=== PATIENT | male | born 1975 | race Caucasian/White ===

== ENCOUNTER 2017-12-17 23:54 | Emergency (ER) | payer MEDICAID ==
[~2017-12-17] VITALS: Ht 177.8 cm; Wt 69.0 kg
[2017-12-18] MEDS ORDERED: ONDANSETRON HCL 4MG/2ML INJ IV ONE (04:30)
[2017-12-18] MEDS ORDERED: SODIUM CHLORIDE 0.9% 1,000 ML IV ONE (04:30)
[2017-12-18] MEDS ORDERED: ACETAMINOPHEN 325MG TABLET PO ONE (06:00)
[2017-12-18] MEDS ORDERED: LORAZEPAM 2MG/ML CPJ IV ONE (06:00)
[2017-12-18] MEDS ORDERED: KETOROLAC 15MG/ML VIAL IV ONE (06:30)
[2017-12-18] MEDS ORDERED: FAMOTIDINE 20MG/2ML VIAL IV ONE (06:30)
[2017-12-18 07:06] LABS: *AMPHETAMINES SCREEN URINE PRESUMTIVE POSITIVE (NEGATIVE); *BARBITURATES SCREEN URINE NEGATIVE (NEGATIVE); *BENZODIAZEPINES SCREEN URINE NEGATIVE (NEGATIVE); *COCAINE SCREEN URINE NEGATIVE (NEGATIVE); METHADONE URINE SCREEN NEGATIVE (NEGATIVE)
[2017-12-18 07:07] LABS: OPIATES URINE SCREEN NEGATIVE (NEGATIVE); PHENCYCLIDINE URINE SCREEN NEGATIVE (NEGATIVE)
[2017-12-18 07:14] LABS: CANNABINOID URINE SCREEN NEGATIVE (NEGATIVE)
[2017-12-18 07:18] VITALS: BP 160/91
== END 2017-12-18 07:19 | disposition home or self-care (01) ==
LOC: ER 23:54
DX: F15.10 Other stimulant abuse, uncomplicated (principal); F41.9 Anxiety disorder, unspecified; F17.200 Nicotine dependence, unspecified, uncomplicated; F90.9 Attention-deficit hyperactivity disorder, unspecified type; R51 Headache; Z79.899 Other long term (current) drug therapy
CPT/HCPCS: 80305; 96361; 96374; 96375; 99284; J1885; J2060; J2405; J3490; J7030

== ENCOUNTER 2017-12-25 17:38 | Emergency (ER) | payer MEDICAID, MEDICARE ==
[~2017-12-25] VITALS: Ht 165.1 cm; Wt 73.0 kg
[2017-12-25 19:40] VITALS: BP 150/100
[2017-12-25] MEDS ORDERED: SODIUM CHLORIDE 0.9% 1,000 ML IV ONE (19:50)
[2017-12-25 20:08] LABS: CLARITY URINE CLEAR (CLEAR); COLOR URINE YELLOW (YELLOW); KETONES URINE TRACE (NEGATIVE); LEUKOCYTE ESTERASE URINE NEGATIVE (NEGATIVE); NITRITE URINE NEGATIVE (NEGATIVE); OCCULT BLOOD URINE NEGATIVE (NEGATIVE); PROTEIN URINE NEGATIVE (NEGATIVE); SPECIFIC GRAVITY URINE 1.022 (1.005-1.030); UROBILINOGEN URINE 0.2 E.U./dL (0.2-1.0)
[2017-12-25 20:42] LABS: BASOPHILS % 0.4 % (0.0-2.0); EOSINOPHILS % 1.8 % (0.0-5.0); HEMATOCRIT. 45.1 % (42.0-52.0); HEMOGLOBIN. 15.5 g/dL (14.0-18.0); LYMPHOCYTES % 29.8 % (20.0-50.0); MEAN CORPUSCULAR HEMOGLOBIN 30.8 pg (28.0-32.0); MEAN CORPUSCULAR VOLUME 89.7 fL (80.0-94.0); MONOCYTES % 7.8 % (2.0-8.0); NEUTROPHILS % 60.2 % (40.0-76.0); PLATELET 304 x1000/uL (130-400); RED BLOOD CELL COUNT 5.03 mill/uL (4.7-6.1); RED CELL DISTRIBUTION WIDTH 14.3 % (11.6-14.6)
[2017-12-25 20:45] LABS: CHLORIDE 106 mEq/L (98-107)
== END 2017-12-25 22:20 | disposition home or self-care (01) ==
LOC: ER 17:38
DX: E86.0 Dehydration (principal); F15.10 Other stimulant abuse, uncomplicated
CPT/HCPCS: 36415; 80053; 81003; 83690; 85025; 96360; 99284; J7030; Z7610

== ENCOUNTER 2018-01-19 12:08 | Emergency (ER) | payer MEDICARE ==
[~2018-01-19] VITALS: Ht 165.1 cm; Wt 72.7 kg
[2018-01-19] MEDS ORDERED: LORAZEPAM 1MG TABLET PO ONE (14:00)
[2018-01-19 17:11] VITALS: BP 126/86
== END 2018-01-19 17:12 | disposition home or self-care (01) ==
LOC: ER 15:52
DX: F41.9 Anxiety disorder, unspecified (principal); F15.10 Other stimulant abuse, uncomplicated; F10.10 Alcohol abuse, uncomplicated; Y90.9 Presence of alcohol in blood, level not specified
CPT/HCPCS: 99284

== ENCOUNTER 2018-02-23 16:07 | Emergency (ER) | payer MEDICARE ==
[~2018-02-23] VITALS: Ht 165.1 cm; Wt 69.0 kg
[2018-02-23 16:29] VITALS: BP 115/66
== END 2018-02-23 19:34 | disposition home or self-care (01) ==
LOC: ER 19:06
DX: F90.9 Attention-deficit hyperactivity disorder, unspecified type (principal); F12.10 Cannabis abuse, uncomplicated; F40.9 Phobic anxiety disorder, unspecified
CPT/HCPCS: 99281

== ENCOUNTER 2018-03-21 11:57 | Emergency (ER) | payer MEDICAID, MEDICARE ==
[~2018-03-21] VITALS: Ht 165.1 cm; Wt 68.0 kg
[2018-03-21 17:56] LABS: CLARITY URINE CLEAR (CLEAR); COLOR URINE YELLOW (YELLOW); KETONES URINE NEGATIVE (NEGATIVE); LEUKOCYTE ESTERASE URINE NEGATIVE (NEGATIVE); NITRITE URINE NEGATIVE (NEGATIVE); OCCULT BLOOD URINE NEGATIVE (NEGATIVE); PROTEIN URINE NEGATIVE (NEGATIVE); SPECIFIC GRAVITY URINE 1.002 (1.005-1.030); UROBILINOGEN URINE 0.2 E.U./dL (0.2-1.0)
[2018-03-21 18:14] LABS: BASOPHILS % 0.7 % (0.0-2.0); EOSINOPHILS % 2.7 % (0.0-5.0); HEMOGLOBIN. 15.7 g/dL (14.0-18.0); LYMPHOCYTES % 18.3 % (20.0-50.0); MEAN PLATELET VOLUME 7.1 fl (7.4-10.4); MONOCYTES % 10.9 % (2.0-8.0); NEUTROPHILS % 67.4 % (40.0-76.0); PLATELET 219 x1000/uL (130-400); RED BLOOD CELL COUNT 5.05 mill/uL (4.7-6.1); RED CELL DISTRIBUTION WIDTH 13.6 % (11.6-14.6)
[2018-03-21 18:18] LABS: CHLORIDE 103 mEq/L (98-107)
[2018-03-21 18:19] LABS: *AMPHETAMINES SCREEN URINE NEGATIVE (NEGATIVE); *BARBITURATES SCREEN URINE NEGATIVE (NEGATIVE); *BENZODIAZEPINES SCREEN URINE NEGATIVE (NEGATIVE); *COCAINE SCREEN URINE NEGATIVE (NEGATIVE); METHADONE URINE SCREEN NEGATIVE (NEGATIVE); OPIATES URINE SCREEN NEGATIVE (NEGATIVE)
[2018-03-21 18:20] LABS: CANNABINOID URINE SCREEN NEGATIVE (NEGATIVE); PHENCYCLIDINE URINE SCREEN NEGATIVE (NEGATIVE)
[2018-03-21 18:22] LABS: ETHANOL BLOOD 169 mg/dL
[2018-03-22] MEDS ORDERED: ACETAMINOPHEN 500MG TABLET PO ONE (02:30)
[2018-03-22] MEDS ORDERED: ACETAMINOPHEN 325MG TABLET PO ONE (08:45)
[2018-03-22] MEDS ORDERED: IBUPROFEN 600MG TABLET PO ONE (15:00)
[2018-03-22 15:07] VITALS: BP 128/82
== END 2018-03-22 17:37 | disposition home or self-care (01) ==
LOC: ER 12:14
DX: T51.0X1A Toxic effect of ethanol, accidental (unintentional), initial encounter (principal); R53.1 Weakness; R51 Headache; R45.851 Suicidal ideations; F32.9 Major depressive disorder, single episode, unspecified; F15.10 Other stimulant abuse, uncomplicated; F12.10 Cannabis abuse, uncomplicated; F41.9 Anxiety disorder, unspecified; F10.20 Alcohol dependence, uncomplicated; Y90.6 Blood alcohol level of 120-199 mg/100 ml; Y92.89 Other specified places as the place of occurrence of the external cause
CPT/HCPCS: 36415; 80053; 80305; 81003; 85025; 99285; G0482

== ENCOUNTER 2021-01-08 08:12 | Emergency (ER) | payer MEDICAID ==
[~2021-01-08] VITALS: Ht 165.1 cm; Wt 71.0 kg
[2021-01-08] MEDS ORDERED: CHLORDIAZEPOXIDE 10MG CAPSULE PO ONE (08:45)
[2021-01-08] MEDS ORDERED: CHLORDIAZEPOXIDE 5 MG CAPSULE PO ONE (08:45)
[2021-01-08] MEDS ORDERED: THIAMINE HCL 100MG TABLET PO ONE (08:45)
[2021-01-08] MEDS ORDERED: CHLORDIAZEPOXIDE 25MG CAPSULE PO ONE (08:45)
[2021-01-08] MEDS ORDERED: CHLO25CA10 MT (09:54)
[2021-01-08 10:02] VITALS: BP 139/82
== END 2021-01-08 10:04 | disposition home or self-care (01) ==
LOC: ER 08:12
DX: F10.229 Alcohol dependence with intoxication, unspecified (principal); F17.200 Nicotine dependence, unspecified, uncomplicated; F41.9 Anxiety disorder, unspecified; Z79.899 Other long term (current) drug therapy; Y90.9 Presence of alcohol in blood, level not specified
CPT/HCPCS: 99283

== ENCOUNTER 2021-01-24 20:45 | Emergency (ER) | payer MEDICAID ==
[~2021-01-24] VITALS: Ht 162.6 cm; Wt 73.0 kg
[~2021-01-24 20:45] MED LIST: CHLO25CA10 MT
[2021-01-25] MEDS ORDERED: ONDANSETRON HCL 4MG/2ML INJ IV STA (00:10)
[2021-01-25] MEDS ORDERED: SODIUM CHLORIDE 0.9% 1,000 ML IV ONE (00:15)
[2021-01-25] MEDS ORDERED: LORAZEPAM 2MG/ML CPJ IV ONE (00:15)
[2021-01-25 00:47] LABS: BASOPHILS % 0.4 % (0.0-2.0); EOSINOPHILS % 0.9 % (0.0-5.0); HEMATOCRIT. 42.8 % (42.0-52.0); HEMOGLOBIN. 14.5 g/dL (14.0-18.0); LYMPHOCYTES % 12.5 % (20.0-50.0); MEAN CORPUSCULAR HEMOGLOBIN 30.8 pg (28.0-32.0); MEAN PLATELET VOLUME 6.7 fl (7.4-10.4); NEUTROPHILS % 74.2 % (40.0-76.0); PLATELET 280 x1000/uL (130-400); RED BLOOD CELL COUNT 4.71 mill/uL (4.7-6.1); RED CELL DISTRIBUTION WIDTH 15.6 % (11.6-14.6)
[2021-01-25 00:50] LABS: CHLORIDE 104 mEq/L (98-107)
[2021-01-25 03:21] VITALS: BP 144/88
[2021-01-25] MEDS ORDERED: HYDR-3782 MT (07:27)
== END 2021-01-25 03:22 | disposition home or self-care (01) ==
LOC: ER 20:45
DX: F10.239 Alcohol dependence with withdrawal, unspecified (principal); Y90.9 Presence of alcohol in blood, level not specified; F15.23 Other stimulant dependence with withdrawal; F41.9 Anxiety disorder, unspecified
CPT/HCPCS: 36415; 80053; 83690; 85025; 96361; 96374; 96375; 99284; J2060; J2405; J7030

== ENCOUNTER 2021-01-25 05:39 | Emergency (ER) | payer MEDICAID ==
[~2021-01-25] VITALS: Ht 162.6 cm; Wt 73.0 kg
[2021-01-25 05:51] VITALS: BP 148/95
[2021-01-25] MEDS ORDERED: HYDR-3782 MT (07:27)
== END 2021-01-25 07:48 | disposition home or self-care (01) ==
LOC: ER 05:39
DX: F10.20 Alcohol dependence, uncomplicated (principal); Y90.9 Presence of alcohol in blood, level not specified; F15.10 Other stimulant abuse, uncomplicated; F41.9 Anxiety disorder, unspecified; F17.210 Nicotine dependence, cigarettes, uncomplicated
CPT/HCPCS: 99283

== ENCOUNTER 2023-03-03 13:48 | Emergency (ER) | payer MEDICAID, OTHER ==
[~2023-03-03] VITALS: Ht 175.3 cm; Wt 79.0 kg
[~2023-03-03 13:48] MED LIST changes: +HYDR-3782 MT
[2023-03-03 13:58] VITALS: BP 112/71; PULSE 72; RESP 20; TEMP 98.6; O2SAT 100
[2023-03-03 15:39] LABS: CLARITY URINE CLEAR (CLEAR); COLOR URINE YELLOW (YELLOW); GLUCOSE URINE NEGATIVE (NEGATIVE); KETONES URINE NEGATIVE (NEGATIVE); LEUKOCYTE ESTERASE URINE NEGATIVE (NEGATIVE); NITRITE URINE NEGATIVE (NEGATIVE); OCCULT BLOOD URINE NEGATIVE (NEGATIVE); PROTEIN URINE NEGATIVE (NEGATIVE); SPECIFIC GRAVITY URINE 1.004 (1.005-1.030); UROBILINOGEN URINE 0.2 E.U./dL (0.2-1.0)
[2023-03-03 15:51] LABS: *AMPHETAMINES SCREEN URINE NEGATIVE (NEGATIVE); *BARBITURATES SCREEN URINE NEGATIVE (NEGATIVE); *BENZODIAZEPINES SCREEN URINE NEGATIVE (NEGATIVE); *COCAINE SCREEN URINE NEGATIVE (NEGATIVE); CANNABINOID URINE SCREEN NEGATIVE (NEGATIVE); ECSTASY MDMA SCREEN URINE NEGATIVE (NEGATIVE); METHADONE URINE SCREEN Neg (NEGATIVE); OPIATES URINE SCREEN NEGATIVE (NEGATIVE); PHENCYCLIDINE URINE SCREEN NEGATIVE (NEGATIVE)
[2023-03-03 15:59] LABS: BASOPHILS % 0.6 % (0.0-2.0); EOSINOPHILS % 1.2 % (0.0-5.0); HEMATOCRIT. 38.8 % (42.0-52.0); HEMOGLOBIN. 13.2 g/dL (14.0-18.0); LYMPHOCYTES % 43.7 % (20.0-50.0); MEAN CORPUSCULAR HEMOGLOBIN 30.4 pg (28.0-32.0); MEAN CORPUSCULAR VOLUME 89.3 fL (80.0-94.0); MEAN PLATELET VOLUME 6.7 fl (7.4-10.4); MONOCYTES % 8.4 % (2.0-8.0); NEUTROPHILS % 46.1 % (40.0-76.0); PLATELET 286 x1000/uL (130-400); RED BLOOD CELL COUNT 4.34 mill/uL (4.7-6.1); RED CELL DISTRIBUTION WIDTH 14.9 % (11.6-14.6); WHITE BLOOD COUNT 5.9 x1000/uL (4.5-11.0)
[2023-03-03 16:21] LABS: ALANINE AMINOTRANSFERASE 25 IU/L (10-49); ALBUMIN 4.2 g/dL (3.2-4.8); ASPARTATE AMINOTRANSFERASE 35 IU/L (<34); BILIRUBIN TOTAL 0.2 mg/dL (0.1-1.0); CALCIUM 8.9 mg/dL (8.7-10.4); CARBON DIOXIDE 27 mEq/L (21-32); CHLORIDE 105 mEq/L (98-107); CREATININE 0.8 mg/dL (0.6-1.3); ETHANOL BLOOD 288 mg/dL (<10); GLUCOSE 118 mg/dL (70-105); POTASSIUM 4.1 mEq/L (3.5-5.1); PROTEIN TOTAL 6.4 g/dL (6.0-8.3); SODIUM 141 mEq/L (136-145); UREA NITROGEN BLOOD 10 mg/dL (9-23)
[2023-03-03] MEDS ORDERED: GABA-534 MT (18:09)
== END 2023-03-03 18:20 | disposition home or self-care (01) ==
LOC: ER 13:48
DX: R00.2 Palpitations (principal); F41.9 Anxiety disorder, unspecified; F15.90 Other stimulant use, unspecified, uncomplicated; F10.10 Alcohol abuse, uncomplicated; Y90.8 Blood alcohol level of 240 mg/100 ml or more
CPT/HCPCS: 36415; 80053; 80305; 80320; 81003; 85025; 99283; G0480

== ENCOUNTER 2023-06-18 16:07 | Emergency (ER) | payer OTHER ==
[~2023-06-18] VITALS: Ht 162.6 cm; Wt 68.0 kg
[~2023-06-18 16:07] MED LIST changes: +GABA-534 MT
[2023-06-18 16:31] VITALS: TEMP 98.2; O2SAT 100
[2023-06-18] MEDS: CHLORDIAZEPOXIDE 25MG CAPSULE PO ONE (17:39)
[2023-06-18 17:53] VITALS: BP 140/95; PULSE 90; RESP 17
== END 2023-06-18 18:59 | disposition home or self-care (01) ==
LOC: ER 16:07
DX: F41.9 Anxiety disorder, unspecified (principal); F15.10 Other stimulant abuse, uncomplicated; I10 Essential (primary) hypertension
CPT/HCPCS: 99283

== ENCOUNTER 2023-12-11 13:24 | Emergency (ER) | payer OTHER ==
[~2023-12-11] VITALS: Ht 165.1 cm; Wt 80.0 kg
[2023-12-11 13:29] VITALS: TEMP 98.9; O2SAT 99
[2023-12-11] MEDS: CHLORDIAZEPOXIDE 25MG CAPSULE PO ONE ×2 (14:06)
[2023-12-11 15:15] VITALS: BP 150/70; PULSE 90; RESP 15; O2SAT 99
== END 2023-12-11 15:16 | disposition home or self-care (01) ==
LOC: ER 13:34
DX: F10.239 Alcohol dependence with withdrawal, unspecified (principal); F15.10 Other stimulant abuse, uncomplicated; I10 Essential (primary) hypertension; F41.9 Anxiety disorder, unspecified; Y90.9 Presence of alcohol in blood, level not specified
CPT/HCPCS: 99283